=== PATIENT | female | born 1995 | race Caucasian/White ===

== ENCOUNTER 2016-05-01 14:37 | Emergency (ER) | payer BC ==
[~2016-05-01] VITALS: Ht 157.5 cm; Wt 50.0 kg
[~2016-05-01 14:37] MED LIST: CIPRO 500MG TA500 MG PO; OMNICEF 300MG300 MG PO; ORTHO TRI-CYCLE1 TAB PO; PYRIDIUM 100MG100 MG PO
[2016-05-01] MEDS ORDERED: SPRINTEC 35 MCG1 TAB PO (14:43)
[2016-05-01] MEDS ORDERED: ADDERALL XR30 MG PO (14:43)
[2016-05-01 17:03] VITALS: BP 108/77; PULSE 107; TEMP 98.4
[2016-05-01 17:29] LABS: HIV 1/2 Antibodies Non-Reactive; HIV-1p24 Antigen Non-Reactive
[2016-05-01 19:46] LABS: CHLAMYDIA/TRACH by PCR Female Not Detected; NEISSERIA GON by PCR Female Not Detected
== END 2016-05-01 17:03 | disposition home or self-care (01) ==
LOC: COL.ER 14:37
PROVIDERS: Physician Assistant
DX: Z20.2 Contact with and (suspected) exposure to infections with a predominantly sexual mode of transmission (principal)

== ENCOUNTER → 2017-01-08 | Outpatient (CLI) | payer BC ==
[~2017-01-08] MED LIST changes: +ADDERALL XR30 MG PO; +SPRINTEC 35 MCG1 TAB PO
== END ==
LOC: COL.RAD 12:53
DX: M79.671 Pain in right foot (principal)